=== PATIENT | female | born 1960 | race Caucasian/White ===

== ENCOUNTER 2017-05-31 10:55 | Emergency (ER) | payer MEDICAID ==
[~2017-05-31] VITALS: Ht 170.2 cm; Wt 70.8 kg
[2017-05-31 11:11] VITALS: Ht 170.2 cm; Wt 70.8 kg
[2017-05-31 14:36] VITALS: BP 117/62
== END 2017-05-31 14:36 | disposition home or self-care (01) ==
LOC: ED 10:55
DX: J11.1 Influenza due to unidentified influenza virus with other respiratory manifestations (principal); Z88.1 Allergy status to other antibiotic agents
CPT/HCPCS: J1885; J7030

== ENCOUNTER 2017-06-10 13:12 | Inpatient (IN) | payer MEDICAID ==
[~2017-06-10] VITALS: Ht 170.2 cm; Wt 71.0 kg
[2017-06-10 15:54] LABS: RED CELL DISTRIBUTION WIDTH 13.4 % (11.5-14.5)
[2017-06-10 15:55] LABS: BASOPHIL % 0 % (0-2)
[2017-06-10 15:56] LABS: PLATELET COUNT 531 x10^3mcL (130-400)
[2017-06-10 15:58] LABS: CALCIUM 9.7 mg/dL (8.5-10.1); CARBON DIOXIDE 26.3 mmol/L (21-32); CHLORIDE SERUM 95 mmol/L (98-107); CREATININE SERUM 0.9 mg/dL (0.6-1.0); GFR1 > 60 mL/min; GLUCOSE SERUM 113 mg/dL (74-106); POTASSIUM SERUM 4.4 mmol/L (3.5-5.1); SODIUM SERUM 131 mmol/L (136-145)
[2017-06-10 16:11] LABS: ALKALINE PHOSPHATASE 126 U/L (46-116); ALT/SGPT 56 U/L (14-59); AST/SGOT 41 U/L (15-37); BILIRUBIN TOTAL 0.53 mg/dL (0.20-1.00); TOTAL PROTEIN, SERUM 8.2 g/dL (6.4-8.2)
[2017-06-10 16:13] LABS: CK-MB < 0.5 ng/mL (0-3.6); CREATINE KINASE 20 U/L (26-192)
[2017-06-10 16:14] LABS: T3 TOTAL 0.9 ng/mL
[2017-06-10 16:33] LABS: C REACTIVE PROTEIN 21.2 mg/dL (<=0.9)
[2017-06-10 16:43] LABS: FREE T4 1.45 ng/dL (0.76-1.46); FREE THYROXINE INDEX 2.8 ug/dL (1.4-4.5)
[2017-06-10 16:53] LABS: microscopic required? YES; urine erythrocyte NEGATIVE (NEGATIVE)
[2017-06-10 16:54] LABS: ERYTHROCYTE SED RATE 102 mm/hr (0-30)
[2017-06-10 16:55] VITALS: BP 149/90
[2017-06-10 17:01] LABS: AMPHETAMINE QUAL UR NONE DETECTED (NEG <=1000)
[2017-06-10 18:04] VITALS: BP 107/61
[2017-06-10 18:07] LABS: CHOLESTEROL/HDL RATIO 5.2; MAGNESIUM 2.2 mg/dL (1.8-2.4); PHOSPHOROUS 3.6 mg/dL (2.5-4.9)
[2017-06-10 20:20] VITALS: BP 112/58
[2017-06-11 05:10] VITALS: BP 103/63
[2017-06-11 07:11] LABS: BASOPHIL % 0.3 % (0-2); PLATELET COUNT 364 x10^3mcL (130-400); RED CELL DISTRIBUTION WIDTH 13.8 % (11.5-14.5)
[2017-06-11 08:11] LABS: CALCIUM 8.2 mg/dL (8.5-10.1); CARBON DIOXIDE 26.2 mmol/L (21-32); CHLORIDE SERUM 105 mmol/L (98-107); CREATININE SERUM 0.8 mg/dL (0.6-1.0); GFR1 > 60 mL/min; GLUCOSE SERUM 98 mg/dL (74-106); MAGNESIUM 2.1 mg/dL (1.8-2.4); PHOSPHOROUS 3.6 mg/dL (2.5-4.9); POTASSIUM SERUM 3.9 mmol/L (3.5-5.1); SODIUM SERUM 139 mmol/L (136-145)
[2017-06-11 10:25] VITALS: BP 137/61
[2017-06-11 14:14] VITALS: BP 135/75
[2017-06-11 16:16] VITALS: Ht 170.2 cm; Wt 71.0 kg
[2017-06-11 17:06] VITALS: BP 127/79
[2017-06-11 20:55] VITALS: BP 134/69
[2017-06-12 04:58] VITALS: BP 114/72
[2017-06-12 06:58] LABS: BASOPHIL % 0.4 % (0-2); PLATELET COUNT 375 x10^3mcL (130-400); RED CELL DISTRIBUTION WIDTH 13.3 % (11.5-14.5)
[2017-06-12 07:16] LABS: CARBON DIOXIDE 25.9 mmol/L (21-32); CHLORIDE SERUM 105 mmol/L (98-107); CREATININE SERUM 0.7 mg/dL (0.6-1.0); GFR1 > 60 mL/min; GLUCOSE SERUM 91 mg/dL (74-106); SODIUM SERUM 139 mmol/L (136-145)
[2017-06-12 09:55] VITALS: BP 149/74
[2017-06-12 14:30] VITALS: BP 136/77
[2017-06-12] MEDS ORDERED: BACO TOP (16:49)
[2017-06-12] MEDS ORDERED: HIBICLENS118 ML TOP (16:50)
[2017-06-12] MEDS ORDERED: LAC PO (16:52)
[2017-06-12] MEDS ORDERED: BACTRIM DS1 TAB PO (16:52)
[2017-06-12] MEDS ORDERED: TYL325 PO (17:05)
[2017-06-12] MEDS ORDERED: OMEPRAZOLE40 M1 PO (17:05)
[2017-06-12 18:50] VITALS: BP 131/73
== END 2017-06-12 22:33 | disposition home or self-care (01) | DRG 720 ==
LOC: ED 13:12 → DU 16:22
PROVIDERS: Family Medicine; Specialist
DX: A41.9 Sepsis, unspecified organism (principal); J69.0 Pneumonitis due to inhalation of food and vomit; N39.0 Urinary tract infection, site not specified; E44.1 Mild protein-calorie malnutrition; E87.1 Hypo-osmolality and hyponatremia; K21.9 Gastro-esophageal reflux disease without esophagitis; R73.03 Prediabetes; E78.5 Hyperlipidemia, unspecified; D64.9 Anemia, unspecified; Z68.24 Body mass index [BMI] 24.0-24.9, adult; Z22.322 Carrier or suspected carrier of Methicillin resistant Staphylococcus aureus
CPT/HCPCS: 83880; 84439; J1885; J1956; J2543; J3490; J7030; J7613; J7620; J7644